=== PATIENT | female | born 1985 | race Hispanic/Latino ===

== ENCOUNTER 2016-08-18 19:22 | Observation (INO) | payer MEDICARE ==
[2016-08-18 20:17] VITALS: BP 118/80; PULSE 73; RESP 16; TEMP 97.7; O2SAT 100
[2016-08-18] MEDS ORDERED: Iohexol 240 (50 ml) PO ONE ×2 (21:15→23:55)
[2016-08-18] MEDS ORDERED: Iohexol 240 (50 ml) ONE (21:40)
[2016-08-18] MEDS ORDERED: Sodium Chloride 0.9% 1,000 ML IV STA ×2 (22:03→22:18)
[2016-08-18 22:09] LABS: BASO # 0.1 K/uL (0.0-0.2); BASO % 0.8 % (0.0-2.0); EOS # 0.2 K/uL (0.0-0.7); EOS % 1.6 % (0.0-4.0); HEMATOCRIT 37.7 % (34.0-47.0); LYMPH # 4.1 K/uL (1.0-4.3); LYMPH % 33.8 % (20.0-40.0); MEAN CELL VOLUME 82.4 fl (81.0-99.0); MEAN CORPUSCULAR HGB CONC 32.8 g/dL (33.0-37.0); MEAN PLATELET VOLUME 9.4 fl (7.2-11.7); MONO % 8.7 % (0.0-10.0); NEUT # 6.6 K/uL (1.8-7.0); NEUT % 55.1 % (50.0-75.0); NRBC % 0.1 % (0.0-0.0); RED CELL DISTRIBUTION WIDTH 13.7 % (11.5-14.5)
[2016-08-18 22:18] LABS: ALB/GLOB RATIO 1.2 (1.0-2.1); ALKALINE PHOSPHATASE 66 U/L (38-126); ALT/SGPT 28 U/L (9-52); AST/SGOT 38 U/L (14-36); BILIRUBIN,TOTAL 0.4 mg/dl (0.2-1.3); BLOOD UREA NITROGEN 12 mg/dl (7-17); CALCIUM 9.1 mg/dL (8.4-10.2); CARBON DIOXIDE 25 mmol/L (22-30); CHLORIDE 103 mmol/L (98-107); GFR AFRICAN-AMERICAN > 60; GLUCOSE,RANDOM 119 mg/dL (65-105); SODIUM 143 mmol/l (132-148); TOTAL PROTEIN 7.6 G/DL (6.3-8.2)
[2016-08-18 22:26] LABS: POTASSIUM 4.4 MMOL/L (3.6-5.0)
--- NOTE | 2016-08-18 22:32 | ED PDOC ---
HPI: Abdomen Time Seen by Provider: 08/18/16 20:20 Chief Complaint (Nursing): Abdominal Pain Chief Complaint (Provider): Abdominal Pain History Per: Patient History/Exam Limitations: no limitations Additional Complaint(s): Lynda Garcia is a 31 year old female with a history of chronic back pain from a prior accident that presents to the ED with abdominal pain concentrated in her RLQ. Patient states that she had a GI workup for irritable bowl syndrome , and had an imaging test this am. She denies any nausea, vomiting, fever, or diarrhea. Past Medical History Reviewed: Historical Data, Nursing Documentation, Vital Signs Vital Signs: Last Vital Signs Temp 97.7 F 08/18/16 20:14 Pulse 73 08/18/16 20:14 Resp 16 08/18/16 20:14 BP 118/80 08/18/16 20:14 Pulse Ox 100 08/26/16 05:11 - Medical History PMH: Back Problems - Surgical History Surgical History: Back Surgery - Family History Family History: States: Unknown Family Hx - Social History Current smoker - smoking cessation education provided: No Alcohol: None Drugs: Denies - Home Medications Home Medications: Ambulatory Orders Medication Instructions Recorded Acetaminophen/Oxycodone Hydr 1 tab PO Q4H 01/18/16 [Percocet 10/325 mg Tab] Morphine [Morphine Extended 15 mg PO BID 01/18/16 Release Tab] - Allergies Allergies/Adverse Reactions: Allergies Allergy/AdvReac Type Severity Reaction Status Date / Time peach Allergy RASH Verified 02/28/16 21:53 Tetanus Vaccines and Toxoid AdvReac RASH Verified 02/28/16 21:53 [Tetanus Vaccines & Toxoid] Review of Systems Constitutional: Negative for: Fever Gastrointestinal: Positive for: Abdominal Pain (in RLQ). Negative for: Nausea, Vomiting, Diarrhea Physical Exam - Reviewed Nursing Documentation Reviewed: Yes Vital Signs Reviewed: Yes - Physical Exam Appears: Positive for: Non-toxic, No Acute Distress Head Exam: Positive for: ATRAUMATIC, NORMOCEPHALIC Skin: Positive for: Normal Color, Warm Eye Exam: Positive for: Normal appearance, EOMI, PERRL Cardiovascular/Chest: Positive for: Regular Rate, Rhythm. Negative for: Murmur Respiratory: Positive for: Normal Breath Sounds. Negative for: Wheezing Gastrointestinal/Abdominal: Positive for: Soft, Tenderness (RLQ tenderness) Back: Positive for: Normal Inspection Extremity: Positive for: Normal ROM. Negative for: Pedal Edema Neurologic/Psych: Positive for: Alert, Oriented (x3) - Laboratory Results Result Diagrams: 08/18/16 21:55 08/18/16 21:55 - ECG O2 Sat by Pulse Oximetry: 100 (RA) Pulse Ox Interpretation: Normal Medical Decision Making Medical Decision Makin:55 Initial Impression: RLQ Abdominal Pain Initial Plan: * CT A/P with contrast * CBC * Urine C&S * Urinalysis * Morphine 4 mg IV * Sodium Chloride 1000 mL at 150 mLs/hr * Iohexol 50 mL PO 22:03 Patient needs imaging and possible admission to the hospital. pt aware of plan. Patient wishes to sign out AMA. This patient is choosing to leave against medical advice. The EP has personally explained to the pt that choosing to do so may result in permanent bodily harm or . The EP discussed at great length that without further evaluation and monitoring there may be unforeseen circumstances and/or deterioration causing permanent bodily harm or as a result of their choice. The pt verbalized these risks back to the physician in laymans terms. The pt is alert , oriented, and shows the mental capacity to make clear decisions regarding the pts health care at this time. The pt continues to wish to leave against medical advice. In light of the pts decision to leave AMA, follow-up has been arranged and the pt is aware of the importance of following up as instructed. The pt has been advised that they should return to the ED immediately if they change their mind at any time, or if thier condition begins to change or worsen in any way. Scribe Attestation: Documented by Carolina García, acting as a scribe for Shari De La Rosa MD. Provider Scribe Attestation: All medical record entries made by the Scribe were at my direction and personally dictated by me. I have reviewed the chart and agree that the record accurately reflects my personal performance of the history, physical exam, medical decision making, and the department course for this patient. I have also personally directed, reviewed, and agree with the discharge instructions and disposition. Disposition - Clinical Impression Clinical Impression: Right lower quadrant abdominal pain, Left against medical advice - Patient ED Disposition Is Patient to be Admitted: No - Disposition Disposition: Against Medical Advice Disposition Time: 23:58 Condition: STABLE
[2016-08-18 22:48] LABS: RBC URINE 1 /hpf (0-3); URINE BACTERIA FEW (<OCC); URINE BILIRUBIN NEGATIVE (NEGATIVE); URINE BLOOD MODERATE (NEGATIVE); URINE COLOR YELLOW (YELLOW); URINE GLUCOSE (UA) NEG (Normal); URINE KETONE NEGATIVE (NEGATIVE); URINE LEUKOCYTE ESTERASE NEG Leu/uL (Negative); URINE PROTEIN NEGATIVE (NEGATIVE); URINE UROBILINOGEN 0.2-1.0 mg/dL (0.2-1.0)
== END 2016-08-19 00:04 | disposition left against medical advice (07) ==
LOC: H.ER 19:22 → H.EROBSV 22:03
PROVIDERS: ADMIT Emergency Medicine; ATTEND Emergency Medicine
DX: R10.31 Right lower quadrant pain (principal)
CPT/HCPCS: 80053; 81003; 81025; 85025; 87086; 96374; 96375; 99284; G0378; J2270; J2405; J7040; Q9966; Q9967

== ENCOUNTER 2017-09-18 22:47 | Emergency (ER) | payer MEDICARE ==
[2017-09-18 23:04] VITALS: BP 124/78; PULSE 85; RESP 18; TEMP 98.5; O2SAT 99
--- NOTE | 2017-09-18 23:53 | ED PDOC ---
HPI: Female Pain Time Seen by Provider: 09/18/17 23:14 Chief Complaint (Nursing): Female Genitourinary Chief Complaint (Provider): Female Genitourinary History Per: Patient History/Exam Limitations: no limitations Onset/Duration Of Symptoms: Days (x13) Current Symptoms Are (Timing): Intermittent Episodes Alleviating Factors: None Additional Complaint(s): 32 year old female presents to ED with complaints of heavy vaginal bleeding x13 days and has no past medical history. Patient notes that the bleeding has progressively worsened with time, with large blood clots in the last few days. ( +) lightheadedness, (-) abdominal pain. Patient reports that x1 week prior to onset, patient had just finished 2 weeks of vaginal bleeding. Notes that three months prior to this episode, she did not menstruate at all. Confirms prior to lack of menstruation, her menses were regulated. Of note, patient was diagnosed with fibroids last year. (-) history of anemia. Pt admits that her mother made her come to the ER. PCP: None Abnormal Vaginal Bleeding: Yes Past Medical History Reviewed: Historical Data, Nursing Documentation, Vital Signs Vital Signs: Last Vital Signs Temp 98.5 F 09/18/17 23:00 Pulse 85 09/18/17 23:00 Resp 18 09/18/17 23:00 BP 124/78 09/18/17 23:00 Pulse Ox 99 09/18/17 23:00 - Medical History PMH: Back Problems Other PMH: Fibroids - Surgical History Surgical History: Back Surgery - Family History Family History: States: Other Other Family History: Uterine cancer - Living Arrangements Living Arrangements: With Family - Social History Current smoker - smoking cessation education provided: No Ex-Smoker (has not smoked in the last 12 months): No Alcohol: None Drugs: Denies - Home Medications Home Medications: Ambulatory Orders Medication Instructions Recorded Acetaminophen/Oxycodone Hydr 1 tab PO Q4H 01/18/16 [Percocet 10/325 mg Tab] Morphine [Morphine Extended 15 mg PO BID 01/18/16 Release Tab] - Allergies Allergies/Adverse Reactions: Allergies Allergy/AdvReac Type Severity Reaction Status Date / Time peach Allergy RASH Verified 02/28/16 21:53 Tetanus Vaccines and Toxoid AdvReac RASH Verified 02/28/16 21:53 [Tetanus Vaccines & Toxoid] Review of Systems ROS Statement: Except As Marked, All Systems Reviewed And Found Negative Gastrointestinal: Negative for: Abdominal Pain Genitourinary Female: Positive for: Vaginal Bleeding Neurological: Positive for: Other ((+) lightheadedness) Physical Exam - Reviewed Nursing Documentation Reviewed: Yes Vital Signs Reviewed: Yes - Physical Exam Appears: Positive for: Non-toxic, No Acute Distress Skin: Positive for: Normal Color, Warm, Dry. Negative for: Pallor Neck: Positive for: Painless ROM Cardiovascular/Chest: Positive for: Regular Rate, Rhythm Respiratory: Negative for: Respiratory Distress Gastrointestinal/Abdominal: Positive for: Soft. Negative for: Tenderness, Mass , Guarding, Rebound - ECG O2 Sat by Pulse Oximetry: 99 (RA) Pulse Ox Interpretation: Normal Medical Decision Making Medical Decision Makin Initial impression: abnormal vaginal bleeding DDx: dysfunctional uterine bleeding, fibroids, anemia, coagulopathy Initial plan: * T&S * Labs * UPreg * UDip * PTT/PT [id number] Patient walk out prior to ER workup. Condition: Stable at initial evaluation Scribe Attestation: Documented by Emely Mix acting as a scribe for Amparo Patel MD. Scribe Attestation: All medical record entries made by the Scribe were at my direction and personally dictated by me. I have reviewed the chart and agree that the record accurately reflects my personal performance of the history, physical exam, medical decision making, and the department course for this patient. I have also personally directed, reviewed, and agree with the discharge instructions and disposition. Disposition - Clinical Impression Clinical Impression: Vaginal bleeding - Disposition Disposition: Left W/O Treatment Disposition Time: 23:55 Condition: STABLE Forms: Secure-24 (Italian)
== END 2017-09-18 23:37 | disposition home or self-care (01) ==
LOC: H.ER 22:47
DX: N92.0 Excessive and frequent menstruation with regular cycle (principal); D64.9 Anemia, unspecified; Z87.891 Personal history of nicotine dependence; D25.9 Leiomyoma of uterus, unspecified